=== PATIENT | female | born 1940 | race Caucasian/White ===

== ENCOUNTER → 2021-10-15 | Outpatient (CLI) ==
[2021-10-15 21:12] LABS: BILIRUBIN,URINE NEGATIVE (NEGATIVE); CLARITY,URINE CLOUDY; COLOR,URINE YELLOW; GLUCOSE, URINE (UA) 1+ (NEGATIVE); KETONES,URINE NEGATIVE (NEGATIVE); LEUKOCYTE ESTERASE ,URINE 1+ (NEGATIVE); NITRITE,URINE NEGATIVE (NEGATIVE); PROTEIN,URINE 2+ (NEGATIVE)
[2021-10-15 21:27] LABS: BACTERIA,URINE FEW /HPF; HYALINE CASTS, URINE 0-2 /LPF; WBC,URINE >100 /HPF; YEAST,URINE MODERATE /HPF
== END ==
LOC: LABNPT 21:07
PROVIDERS: ATTEND Internal Medicine
DX: R41.82 Altered mental status, unspecified (principal)
CPT/HCPCS: 81000; 87077; 87088

== ENCOUNTER 2022-05-27 22:56 | Emergency (ER) | payer MEDICARE, MEDICAID ==
--- NOTE | 2022-05-27 23:16 | ED Cardiac General ---
History of Present Illness General Chief Complaint: Cardiac/General Problems Stated Complaint: PALPITATIONS Source: patient (EXTREMELY POOR HISTORIAN; NO PRIOR VISITS HERE) History of Present Illness Date Seen by Provider: May 27, 2022 Time Seen by Provider: 22:57 Initial Comments PT ARRIVES VIA EMS FROM [facility] Allergies and Home Medications Allergies Coded Allergies: Penicillins (Verified Allergy, Unknown, 05/27/22) codeine (Verified Allergy, Unknown, 05/27/22) morphine (Verified Allergy, Unknown, 05/27/22) Physical Exam Vital Signs Vital Signs - First Documented 05/27/22 22:57 Temp 36.8 Pulse 85 Resp 16 B/P (MAP) 191/90 (123) Pulse Ox 97 Capillary Refill : Height, Weight, BMI Height: '" Weight: lbs. oz. kg; BMI Method: Progress/Results/Core Measures Results/Orders Lab Results Laboratory Tests Test 05/27/22 23:15 05/27/22 23:25 Range/Units White Blood Count 13.4 H 4.3-11.0 10^3/uL Red Blood Count 4.38 3.80-5.11 10^6/uL Hemoglobin 12.8 11.5-16.0 g/dL Hematocrit 39 35-52 % Mean Corpuscular Volume 90 80-99 fL Mean Corpuscular Hemoglobin 29 25-34 pg Mean Corpuscular Hemoglobin Concent 33 32-36 g/dL Red Cell Distribution Width 17.0 H 10.0-14.5 % Platelet Count 227 130-400 10^3/uL Mean Platelet Volume 10.0 9.0-12.2 fL Immature Granulocyte % (Auto) 1 % Neutrophils (%) (Auto) 83 H 42-75 % Lymphocytes (%) (Auto) 10 L 12-44 % Monocytes (%) (Auto) 5 0-12 % Eosinophils (%) (Auto) 0 0-10 % Basophils (%) (Auto) 1 0-10 % Neutrophils # (Auto) 11.2 H 1.8-7.8 10^3/uL Lymphocytes # (Auto) 1.4 1.0-4.0 10^3/uL Monocytes # (Auto) 0.7 0.0-1.0 10^3/uL Eosinophils # (Auto) 0.0 0.0-0.3 10^3/uL Basophils # (Auto) 0.1 0.0-0.1 10^3/uL Immature Granulocyte # (Auto) 0.1 0.0-0.1 10^3/uL Percent Immature Platelet Fraction 2.7 0.0-7.6 % Prothrombin Time 12.4 12.2-14.7 SEC INR Comment 0.9 0.8-1.4 Activated Partial Thromboplast Time 26 24-35 SEC D-Dimer 2.32 H 0.00-0.49 UG/ML Sodium Level 136 135-145 MMOL/L Potassium Level 3.8 3.6-5.0 MMOL/L Chloride Level 97 L 98-107 MMOL/L Carbon Dioxide Level 24 21-32 MMOL/L Anion Gap 15 H 5-14 MMOL/L Blood Urea Nitrogen 13 7-18 MG/DL Creatinine 0.89 0.60-1.30 MG/DL Estimat Glomerular Filtration Rate 66 BUN/Creatinine Ratio 15 Glucose Level 205 H 70-105 MG/DL Calcium Level 9.8 8.5-10.1 MG/DL Corrected Calcium 9.6 8.5-10.1 MG/DL Magnesium Level 1.5 L 1.6-2.4 MG/DL Total Bilirubin 0.3 0.1-1.0 MG/DL Aspartate Amino Transf (AST/SGOT) 19 5-34 U/L Alanine Aminotransferase (ALT/SGPT) 14 0-55 U/L Alkaline Phosphatase 65 40-136 U/L Total Creatine Kinase 112 29-168 U/L Creatine Kinase MB 2.8 <6.6 NG/ML Myoglobin 65.1 10.0-92.0 NG/ML Troponin I < 0.028 <0.028 NG/ML B-Type Natriuretic Peptide 142.6 H <100.0 PG/ML Total Protein 7.7 6.4-8.2 GM/DL Albumin 4.2 3.2-4.5 GM/DL TSH [place] Testing 2.78 0.35-4.94 UIU/ML Serum Alcohol < 10 <10 MG/DL Smear Scan YES Urine Color YELLOW Urine Clarity CLEAR Urine pH 7.0 5-9 Urine Specific [place] 1.020 1.016-1.022 Urine Protein 2+ H NEGATIVE Urine Glucose (UA) 1+ H NEGATIVE Urine Ketones 2+ H NEGATIVE Urine Nitrite NEGATIVE NEGATIVE Urine Bilirubin NEGATIVE NEGATIVE Urine Urobilinogen 0.2 < = 1.0 MG/DL Urine Leukocyte Esterase 1+ H NEGATIVE Urine RBC (Auto) TRACE-I H NEGATIVE Urine RBC RARE /HPF Urine WBC 10-25 H /HPF Urine Squamous Epithelial Cells 2-5 /HPF Urine Crystals NONE /LPF Urine Bacteria LARGE H /HPF Urine Casts PRESENT /LPF Urine Hyaline Casts 2-5 H /LPF Urine Mucus NEGATIVE /LPF Urine Culture Indicated YES Urine Opiates Screen NEGATIVE NEGATIVE Urine Oxycodone Screen NEGATIVE NEGATIVE Urine Methadone Screen NEGATIVE NEGATIVE Urine Propoxyphene Screen NEGATIVE NEGATIVE Urine Barbiturates Screen NEGATIVE NEGATIVE Ur Tricyclic Antidepressants Screen NEGATIVE NEGATIVE Urine Phencyclidine Screen NEGATIVE NEGATIVE Urine Amphetamines Screen NEGATIVE NEGATIVE Urine Methamphetamines Screen NEGATIVE NEGATIVE Urine Benzodiazepines Screen NEGATIVE NEGATIVE Urine Cocaine Screen NEGATIVE NEGATIVE Urine Cannabinoids Screen NEGATIVE NEGATIVE My Orders Orders - MICHAEL SALVADOR DO Ekg Tracing (05/27/22 22:57) Chest 1 View, Ap/Pa Only (05/27/22 22:57) Ed Iv/Invasive Line Start (05/27/22 22:57) O2 (05/27/22 22:57) Monitor-Rhythm Ecg Trace Only (05/27/22 22:57) Bnp [place] (05/27/22 22:57) Cbc With Automated Diff (05/27/22 22:57) Comprehensive Metabolic Panel (05/27/22 22:57) Creatine Kinase (05/27/22 22:57) Creatine Kinase Mb (05/27/22 22:57) Magnesium (05/27/22 22:57) Protime With Inr (05/27/22 22:57) Partial Thromboplastin Time (05/27/22 22:57) Thyroid Analyzer (05/27/22 22:57) Ua Culture If Indicated (05/27/22 22:57) Myoglobin Serum (05/27/22 22:57) Troponin I [place] (05/27/22 22:57) Alcohol (05/27/22 22:59) Fibrin Degradation Products (05/27/22 22:59) Drug Screen Stat (Urine) (05/27/22 22:59) Ct Head Wo-R/O Stroke (05/27/22 23:13) Catheter(Urinary) Insert & Ass 03,15 (05/27/22 23:19) Lidocaine 2% (Urojet) (Xylocaine Urojet) (05/27/22 23:30) Hydralazine Injection (Apresoline Inject (05/27/22 23:45) Urine Culture (05/27/22 23:25) Ceftriaxone 1 Gm Pre-Mix (Rocephin 1 Gm (05/28/22 00:30) Ondansetron Injection (Zofran Injectio (05/28/22 01:15) Medications Given in ED Current Medications Medications Dose Ordered Sig/Garret Route Start Time Stop Time Status Last Admin Dose Admin Ceftriaxone Sodium/Dextrose 50 ml @ 100 mls/hr ONCE ONCE IV 05/28/22 00:30 05/28/22 00:59 DC 05/28/22 00:41 100 MLS/HR Hydralazine HCl 10 mg ONCE ONCE IV 05/27/22 23:45 05/27/22 23:46 DC 05/28/22 00:10 10 MG Lidocaine HCl 10 ml ONCE ONCE TOP 05/27/22 23:30 05/27/22 23:31 DC 05/27/22 23:22 10 ML Ondansetron HCl 8 mg ONCE ONCE IVP 05/28/22 01:15 05/28/22 01:16 DC 05/28/22 01:08 8 MG Vital Signs/I&O 05/27/22 22:57 Temp 36.8 Pulse 85 Resp 16 B/P (MAP) 191/90 (123) Pulse Ox 97 Departure Impression Primary Impression: Hypertensive intracerebral hemorrhage Additional Impressions: UTI (urinary tract infection) Left arm cellulitis Confusion Disposition: 02 XFER SHT-TRM HOSP Transfer Transfer Reason: Exceeds level of care (NEED FOR NEUROLOGY / NEUROSURGICAL SERVICES UNAVAILABLE HERE) Transfer Facility: [facility] Method of Transfer: EMS MICHAEL SALVADOR DO May 27, 2022 23:16
[2022-05-27 23:24] LABS: EOSINOPHILS % (AUTO) 0 % (0-10); HEMOGLOBIN 12.8 g/dL (11.5-16.0)
[2022-05-27 23:25] LABS: BASOPHILS # (AUTO) 0.1 10^3/uL (0.0-0.1); BASOPHILS % (AUTO) 1 % (0-10); HEMATOCRIT 39 % (35-52); LYMPHOCYTES # (AUTO) 1.4 10^3/uL (1.0-4.0); LYMPHOCYTES % (AUTO) 10 % (12-44); MEAN CORPUSCULAR HEMOGLOBIN 29 pg (25-34); MEAN CORPUSCULAR HGB CONC 33 g/dL (32-36); MEAN CORPUSCULAR VOLUME 90 fL (80-99); MONOCYTES # (AUTO) 0.7 10^3/uL (0.0-1.0); MONOCYTES % (AUTO) 5 % (0-12); NEUTROPHILS # (AUTO) 11.2 10^3/uL (1.8-7.8); NEUTROPHILS % (AUTO) 83 % (42-75); PLATELET COUNT 227 10^3/uL (130-400); WHITE BLOOD COUNT 13.4 10^3/uL (4.3-11.0)
[2022-05-27] MEDS ORDERED: LIDOCAINE UROJET 2% GEL 10 ML PKG TOP ONE (23:30)
[2022-05-27 23:33] LABS: SMEAR SCAN COMMENT YES
[2022-05-27 23:38] LABS: ALBUMIN 4.2 GM/DL (3.2-4.5)
[2022-05-27 23:39] LABS: CHLORIDE 97 MMOL/L (98-107); POTASSIUM 3.8 MMOL/L (3.6-5.0); SODIUM 136 MMOL/L (135-145)
[2022-05-27 23:40] LABS: CALCIUM 9.8 MG/DL (8.5-10.1)
[2022-05-27 23:41] LABS: FIBRIN DEGRADATION PRODUCTS 2.32 UG/ML (0.00-0.49); GLUCOSE 205 MG/DL (70-105); INR 0.9 (0.8-1.4); PROTHROMBIN TIME PATIENT 12.4 SEC (12.2-14.7); TOTAL PROTEIN 7.7 GM/DL (6.4-8.2)
[2022-05-27 23:42] LABS: CARBON DIOXIDE 24 MMOL/L (21-32)
[2022-05-27 23:43] LABS: BILIRUBIN,TOTAL 0.3 MG/DL (0.1-1.0)
[2022-05-27 23:44] LABS: ALKALINE PHOSPHATASE 65 U/L (40-136)
[2022-05-27 23:45] LABS: CREATININE SERUM 0.89 MG/DL (0.60-1.30); GFR ESTIMATED 66
[2022-05-27] MEDS ORDERED: hydrALAZINE (APESOLINE) 20 MG/ML VIAL IV ONE (23:45)
[2022-05-27 23:46] LABS: BUN/CREATININE RATIO 15
[2022-05-27 23:47] LABS: ALANINE AMINOTRANSFERASE 14 U/L (0-55); MAGNESIUM 1.5 MG/DL (1.6-2.4)
[2022-05-27 23:48] LABS: CREATINE KINASE 112 U/L (29-168)
[2022-05-27 23:53] LABS: BILIRUBIN,URINE NEGATIVE (NEGATIVE); CLARITY,URINE CLEAR; COLOR,URINE YELLOW; GLUCOSE, URINE (UA) 1+ (NEGATIVE); KETONES,URINE 2+ (NEGATIVE); LEUKOCYTE ESTERASE ,URINE 1+ (NEGATIVE); NITRITE,URINE NEGATIVE (NEGATIVE); PROTEIN,URINE 2+ (NEGATIVE)
[2022-05-27 23:55] LABS: CREATINE KINASE MB 2.8 NG/ML (<6.6)
[2022-05-28 00:08] LABS: TSH (THYROID ANALYZER) 2.78 UIU/ML (0.35-4.94)
[2022-05-28 00:23] LABS: AMPHETAMINE SCREEN, URINE NEGATIVE (NEGATIVE); BARBITURATE SCREEN URINE NEGATIVE (NEGATIVE); BENZODIAZEPINES SCREEN URINE NEGATIVE (NEGATIVE); CANNABINOID SCREEN, URINE NEGATIVE (NEGATIVE); COCAINE SCREEN URINE NEGATIVE (NEGATIVE); METHADONE STAT NEGATIVE (NEGATIVE); OPIATE SCREEN URINE NEGATIVE (NEGATIVE); OXYCODONE STAT NEGATIVE (NEGATIVE); PROPOXYPHENE STAT NEGATIVE (NEGATIVE); TRICYCLIC ANTIDEPRESSANTS SCRE NEGATIVE (NEGATIVE)
[2022-05-28 00:24] LABS: BACTERIA,URINE LARGE /HPF; RBC,URINE RARE /HPF
[2022-05-28] MEDS ORDERED: cefTRIAXone 1 GM PRE-MIX 50 ML IV ONE (00:30)
[2022-05-28] MEDS ORDERED: ONDANSETRON 4 MG/2 ML (SDV) Z0FRAN IVP ONE (01:15)
[2022-05-28 02:54] VITALS: BP 131/57
--- NOTE | 2022-05-28 07:47 | Diagnostic Imaging Report ---
EXAMINATION: Chest radiograph, portable AP view. DATE: 05/28/2022 12:06 AM INDICATION: 81-year-old female, headache, hypertension, chest pain. COMPARISON: None. FINDINGS: There is elevation of the right hemidiaphragm. There are surgical clips projecting over the right chest. There are largely linear opacities in the right mid and lower lung zone. Heart size and mediastinal contours are unremarkable. There is no identified pneumothorax. There is no large pleural effusion. There are vascular calcifications. IMPRESSION: 1. Predominantly linear opacities in the right mid and lower lung which could relate to scarring and/or atelectasis although are not particularly well evaluated radiographically, especially without comparison imaging. 2. Elevation of the right hemidiaphragm. Dictated by: Dictated on workstation # [id number]
--- NOTE | 2022-05-28 07:49 | Diagnostic Imaging Report ---
PROCEDURE: CT head wo r/o stroke. TECHNIQUE: Multiple contiguous axial images were obtained through the brain without the use of intravenous contrast. Auto Exposure Controls were utilized during the CT exam to meet ALARA standards for radiation dose reduction. DATE: May 27, 2022. COMPARISON: None. INDICATION: 81-year-old female, headache, hypertension. History of right-sided breast cancer. FINDINGS: There is chondrocalcinosis. There is mild proportional prominence of the ventricles and additional CSF spaces consistent with mild cerebral volume loss. There is a very high attenuation focus subjacent to the falx on both sides of midline on axial image 47. This measures 10 x 6 mm in size. There is no additional identified area of potential acute intracranial hemorrhage. There is no mass effect. There is no midline shift. IMPRESSION: 1. High attenuation focus near the falx measuring approximately 10 x 6 mm in size which does raise concern for site of acute intracranial hemorrhage. This is likely extra-axial in location. This could be subarachnoid in location. 2. No mass effect or midline shift. 3. No hydrocephalus. Dictated by: Dictated on workstation # [id number]
== END 2022-05-28 02:54 | disposition short-term general hospital (02) ==
LOC: EDUNIT# 22:56 → ER 22:57
DX: N39.0 Urinary tract infection, site not specified (principal); L03.114 Cellulitis of left upper limb; I61.9 Nontraumatic intracerebral hemorrhage, unspecified; I10 Essential (primary) hypertension; R41.0 Disorientation, unspecified; Z28.310 Unvaccinated for COVID-19
CPT/HCPCS: 51702; 70450; 71045; 80053; 80306; 81000; 82550; 82553; 83735; 83874; 83880; 84443; 84484; 85025; 85379; 85610; 85730; 87077; 87088; 87186; 93005; 93041; 99285; G0480; 36415; 80320; 96365; 96375

== ENCOUNTER 2022-08-28 14:04 | Outpatient (RCR) | payer MEDICARE, MEDICAID | END 2022-09-17 | disposition home or self-care (01) | LOC: ONC 14:04 | PROVIDERS: ATTEND Internal Medicine Hematology & Oncology | DX: C50.919 Malignant neoplasm of unspecified site of unspecified female breast (principal) | CPT/HCPCS: 99204 ==

== ENCOUNTER 2022-11-27 12:44 | Outpatient (RCR) | payer MEDICARE, MEDICAID | END 2022-12-15 | disposition home or self-care (01) | LOC: ONC 12:44 | PROVIDERS: ATTEND Internal Medicine Hematology & Oncology | DX: C50.919 Malignant neoplasm of unspecified site of unspecified female breast (principal) ==

== ENCOUNTER 2023-02-26 12:31 | Outpatient (RCR) | payer MEDICARE, MEDICAID | END 2023-03-17 | disposition home or self-care (01) | LOC: ONC 12:31 | PROVIDERS: ATTEND Internal Medicine Hematology & Oncology | DX: C50.919 Malignant neoplasm of unspecified site of unspecified female breast (principal) ==